=== PATIENT | male | born 1955 | race Caucasian/White ===

== ENCOUNTER 2022-01-26 13:42 | Inpatient (IN) | payer MEDICARE ==
[2022-01-26 14:13] LABS: #Basophils 0.1 10x3/uL (0.0-0.2); #Eosinphils 0.1 10x3/uL (0.0-0.5); #Monocytes 0.7 10x3/uL (0.0-1.1); %Basophils 0.8 % (0.0-2.0); %Eosinophils 1.4 % (0.0-6.0); %Lymphocytes 12.5 % (18.0-47.0); %Monocytes 7.7 % (0.0-10.0); %Neutrophils 77.4 % (40.0-75.0); Hemoglobin 15.2 g/dL (13.5-17.5); Mean Corpuscular HGB CONC 33.9 g/dL (32.0-36.0); Mean Corpuscular Hemoglobin 31.5 pg (27.0-33.0); Mean Corpuscular Volume 92.8 fl (81.2-95.1); Platelet Count 194 10x3/uL (150-450); Red Blood Cell (RBC) Count 4.83 10x6/uL (4.32-5.72); White Blood Cell (WBC) Count 9.1 10x3/uL (3.5-10.5)
[2022-01-26 14:34] LABS: ALT (SGPT) 19 U/L (8-55); AST (SGOT) 27 U/L (5-34); Albumin 4.2 g/dL (3.4-4.8); Alkaline Phosphatase 90 U/L (40-110); Anion Gap 14 mmol/L (10-20); BUN (Urea Nitrogen) 18 mg/dL (8.4-25.7); Bilirubin, Total 2.2 mg/dL (0.2-1.2); Calc. Creatinine Clearance 0 mL/min (70-130); Calcium 9.4 mg/dL (7.8-10.44); Carbon Dioxide 26 mmol/L (23-31); Chloride 103 mmol/L (98-107); Globulin 2.8 g/dL (2.4-3.5); Glucose 105 mg/dL (80-115); Lipase 33 U/L (8-78); Potassium 4.6 mmol/L (3.5-5.1); Sodium 138 mmol/L (136-145)
[2022-01-26] MEDS ORDERED: Aspirin Chewable 81 MG TAB ONE (14:59)
[2022-01-26] MEDS ORDERED: Ondansetron PF 4 MG/2 ML Vial IVP PRN (16:14)
[2022-01-26] MEDS ORDERED: Enoxaparin Sodium 40 MG/0.4 ML SYRINGE SC SCH ×2 (16:15→18:30)
[2022-01-26] MEDS ORDERED: Nitroglycerin 0.4 MG TAB (25 Tab Bottle) SL PRN (16:17)
[2022-01-26 18:10] LABS: Troponin I Less than 0.010 ng/mL (< 0.028)
[2022-01-26 19:56] VITALS: BMI 26.3
[2022-01-26] MEDS: Metoprolol Tartrate 25 MG TAB PO SCH (20:54)
[2022-01-26] MEDS: Acetaminophen 325 MG TAB PO PRN (20:55)
[2022-01-27 00:24] LABS: Troponin I Less than 0.010 ng/mL (< 0.028)
[2022-01-27 03:49] LABS: #Basophils 0.1 10x3/uL (0.0-0.2); #Eosinphils 0.2 10x3/uL (0.0-0.5); #Monocytes 0.6 10x3/uL (0.0-1.1); #Neutrophils 3.5 10x3/uL (1.5-8.4); %Basophils 1.2 % (0.0-2.0); %Eosinophils 2.8 % (0.0-6.0); %Lymphocytes 28.5 % (18.0-47.0); %Monocytes 9.7 % (0.0-10.0); %Neutrophils 57.6 % (40.0-75.0); Hemoglobin 14.8 g/dL (13.5-17.5); Mean Corpuscular HGB CONC 34.3 g/dL (32.0-36.0); Mean Corpuscular Hemoglobin 31.3 pg (27.0-33.0); Mean Corpuscular Volume 91.3 fl (81.2-95.1); Mean Platelet Volume 10.5 fl (7.4-10.4); Platelet Count 179 10x3/uL (150-450); RBC Distribution Width 13.1 % (11.5-14.5); Red Blood Cell (RBC) Count 4.73 10x6/uL (4.32-5.72); White Blood Cell (WBC) Count 6.1 10x3/uL (3.5-10.5)
[2022-01-27 03:56] LABS: ALT (SGPT) 18 U/L (8-55); AST (SGOT) 23 U/L (5-34); Albumin 3.6 g/dL (3.4-4.8); Alkaline Phosphatase 81 U/L (40-110); Anion Gap 15 mmol/L (10-20); BUN (Urea Nitrogen) 18 mg/dL (8.4-25.7); Bilirubin, Total 1.6 mg/dL (0.2-1.2); Calc. Creatinine Clearance 110 mL/min (70-130); Calcium 8.9 mg/dL (7.8-10.44); Carbon Dioxide 24 mmol/L (23-31); Chloride 107 mmol/L (98-107); Globulin 2.8 g/dL (2.4-3.5); Glucose 119 mg/dL (80-115); Potassium 3.5 mmol/L (3.5-5.1); Protein, Total 6.4 g/dL (5.8-8.1); Sodium 142 mmol/L (136-145)
[2022-01-27] MEDS: Levothyroxine Sodium 100 MCG TAB PO SCH (05:52)
[2022-01-27] MEDS ORDERED: Dutasteride 0.5 MG CAP PO SCH (07:30)
[2022-01-27] MEDS: Metoprolol Tartrate 25 MG TAB PO SCH ×2 (09:02→20:11)
[2022-01-27] MEDS: Isosorbide Dinitrate 10 MG TAB PO SCH (09:04)
[2022-01-27] MEDS: Aspirin 81 mg Enteric Coated Tablet PO SCH (09:04)
[2022-01-27] MEDS: Lisinopril 10 MG TAB PO SCH (09:04)
[2022-01-27] MEDS: Enoxaparin Sodium 40 MG/0.4 ML SYRINGE SC SCH (09:05)
[2022-01-27 22:39] LABS: SARS-CoV-2 PCR by NAA Not Detected (NotDetected)
[2022-01-28] MEDS: Acetaminophen 325 MG TAB PO PRN (04:20)
[2022-01-28] MEDS: Levothyroxine Sodium 100 MCG TAB PO SCH (05:21)
[2022-01-28] MEDS: Isosorbide Dinitrate 10 MG TAB PO SCH (08:13)
[2022-01-28] MEDS: Metoprolol Tartrate 25 MG TAB PO SCH ×2 (08:13→21:38)
[2022-01-28] MEDS: Lisinopril 10 MG TAB PO SCH (08:13)
[2022-01-28] MEDS: Enoxaparin Sodium 40 MG/0.4 ML SYRINGE SC SCH (08:13)
[2022-01-28] MEDS: Aspirin 81 mg Enteric Coated Tablet PO SCH (08:13)
[2022-01-29] MEDS: Metoprolol Tartrate 25 MG TAB PO SCH ×2 (06:05→21:57)
[2022-01-29] MEDS: Levothyroxine Sodium 100 MCG TAB PO SCH (06:05)
[2022-01-29] MEDS ORDERED: Iopamidol 300 61% 100 ML VIAL FS ONE (09:48)
[2022-01-29] MEDS: Lisinopril 20 MG TAB PO SCH (10:34)
[2022-01-29] MEDS: Isosorbide Dinitrate 10 MG TAB PO SCH (10:35)
[2022-01-29] MEDS: Aspirin 81 mg Enteric Coated Tablet PO SCH (10:44)
[2022-01-29] MEDS: Enoxaparin Sodium 40 MG/0.4 ML SYRINGE SC SCH (10:44)
[2022-01-29] MEDS ORDERED: PROPOFOL 20 ML ONE (15:33)
[2022-01-29] MEDS ORDERED: Lidocaine 1% PF 5 ML VIAL ONE (15:39)
[2022-01-30 03:58] LABS: #Basophils 0.1 10x3/uL (0.0-0.2); #Eosinphils 0.1 10x3/uL (0.0-0.5); #Monocytes 0.5 10x3/uL (0.0-1.1); #Neutrophils 4.2 10x3/uL (1.5-8.4); %Basophils 1.4 % (0.0-2.0); %Eosinophils 2.2 % (0.0-6.0); %Lymphocytes 23.1 % (18.0-47.0); %Monocytes 7.9 % (0.0-10.0); %Neutrophils 65.1 % (40.0-75.0); Hemoglobin 15.9 g/dL (13.5-17.5); Mean Corpuscular HGB CONC 34.4 g/dL (32.0-36.0); Mean Corpuscular Hemoglobin 31.4 pg (27.0-33.0); Mean Corpuscular Volume 91.3 fl (81.2-95.1); Platelet Count 186 10x3/uL (150-450); Red Blood Cell (RBC) Count 5.06 10x6/uL (4.32-5.72); White Blood Cell (WBC) Count 6.5 10x3/uL (3.5-10.5)
[2022-01-30 04:14] LABS: Anion Gap 13 mmol/L (10-20); BUN (Urea Nitrogen) 21 mg/dL (8.4-25.7); Calc. Creatinine Clearance 114 mL/min (70-130); Calcium 9.3 mg/dL (7.8-10.44); Carbon Dioxide 25 mmol/L (23-31); Chloride 108 mmol/L (98-107); Glucose 115 mg/dL (80-115); Potassium 3.7 mmol/L (3.5-5.1); Sodium 142 mmol/L (136-145)
[2022-01-30] MEDS: Levothyroxine Sodium 100 MCG TAB PO SCH (06:18)
[2022-01-30 06:29] LABS: Thyroid Stimulating Hormone 1.2305 uIU/mL (0.35-4.94)
[2022-01-30] MEDS: Lisinopril 20 MG TAB PO SCH (08:52)
[2022-01-30] MEDS: Metoprolol Tartrate 25 MG TAB PO SCH (08:52)
[2022-01-30] MEDS: Enoxaparin Sodium 40 MG/0.4 ML SYRINGE SC SCH (08:52)
[2022-01-30] MEDS: Isosorbide Dinitrate 10 MG TAB PO SCH (08:53)
[2022-01-30] MEDS: Aspirin 81 mg Enteric Coated Tablet PO SCH (08:53)
[2022-01-30 13:20] LABS: T4 8.4 ug/dL (4.87-11.72)
[2022-01-30 17:06] VITALS: BP 137/83; TEMP 97.4
== END 2022-01-30 17:06 | disposition home or self-care (01) | DRG 313 ==
LOC: CSHERS 13:42 → CSHTELE 18:05 → OBSVTOIN 01-29 09:01
PROVIDERS: ADMIT Hospitalist; ATTEND Hospitalist
PROC: 0DB98ZX Excision of Duodenum, Via Natural or Artificial Opening Endoscopic, Diagnostic (ICD-10-PCS; principal; 2022-01-29)
DX: R07.89 Other chest pain (principal); I25.10 Atherosclerotic heart disease of native coronary artery without angina pectoris; E78.5 Hyperlipidemia, unspecified; N40.0 Benign prostatic hyperplasia without lower urinary tract symptoms; Z20.822 Contact with and (suspected) exposure to COVID-19; I49.1 Atrial premature depolarization; I10 Essential (primary) hypertension; E03.9 Hypothyroidism, unspecified; Z95.5 Presence of coronary angioplasty implant and graft; Z88.5 Allergy status to narcotic agent; Z79.899 Other long term (current) drug therapy; Z90.49 Acquired absence of other specified parts of digestive tract; Z90.89 Acquired absence of other organs; Z98.890 Other specified postprocedural states
CPT/HCPCS: 36415; 71045; 74177; 80048; 80053; 83690; 84436; 84443; 84484; 85025; 85379; 88305; 93005; 93010; 93306; 96372; G0378; J1650; J2704; Q9967; U0003; U0005

== ENCOUNTER 2022-05-24 15:23 | Emergency (ER) | payer MEDICARE | END 2022-05-24 18:13 | disposition home or self-care (01) | LOC: CSHERS 15:23 | DX: R21 Rash and other nonspecific skin eruption (principal); I25.10 Atherosclerotic heart disease of native coronary artery without angina pectoris; I25.2 Old myocardial infarction; E78.5 Hyperlipidemia, unspecified; E03.9 Hypothyroidism, unspecified; I10 Essential (primary) hypertension; Z79.82 Long term (current) use of aspirin; Z79.899 Other long term (current) drug therapy ==

== ENCOUNTER → 2023-04-28 | Day surgery (SDC) | payer MEDICARE ==
[~2023-04-28] MED LIST: Atropine Sulfate 0.4 mg/1 ml Vial ONE; Glycopyrrolate 0.2 MG/ML 5 ML SYRINGE ONE; Midazolam HCl 2 mg/2 ml Vial ONE; PHENYLEPHRINE-NS 100 MCG/ML 10 ML SYRINGE ONE; PROPOFOL 60 ML ONE; ePHEDrine Sulfate 50 MG/10 ML VIAL ONE
== END ==
LOC: CSHSDC 10:20
PROVIDERS: ATTEND Internal Medicine Cardiovascular Disease
DX: I48.0 Paroxysmal atrial fibrillation (principal); I08.1 Rheumatic disorders of both mitral and tricuspid valves; I25.10 Atherosclerotic heart disease of native coronary artery without angina pectoris; R94.31 Abnormal electrocardiogram [ECG] [EKG]; I10 Essential (primary) hypertension; E78.5 Hyperlipidemia, unspecified; I25.2 Old myocardial infarction; Z79.890 Hormone replacement therapy; Z79.899 Other long term (current) drug therapy; Z90.89 Acquired absence of other organs; Z90.49 Acquired absence of other specified parts of digestive tract; Z95.5 Presence of coronary angioplasty implant and graft; Z88.6 Allergy status to analgesic agent
CPT/HCPCS: 93312; J0461; J2250; J2704

== ENCOUNTER 2023-11-20 18:51 | Observation (INO) | payer MEDICARE ==
[2023-11-20 19:46] LABS: #Basophils 0.1 10x3/uL (0.0-0.2); #Eosinphils 0.2 10x3/uL (0.0-0.5); #Monocytes 0.6 10x3/uL (0.0-1.1); #Neutrophils 10.4 10x3/uL (1.5-8.4); %Basophils 0.9 % (0.0-2.0); %Eosinophils 1.7 % (0.0-6.0); %Lymphocytes 10.3 % (18.0-47.0); %Neutrophils 81.7 % (40.0-75.0); Hematocrit 45.7 % (38.8-50.0); Hemoglobin 15.1 g/dL (13.5-17.5); Mean Corpuscular Hemoglobin 30.7 pg (27.0-33.0); Mean Corpuscular Volume 92.9 fl (81.2-95.1); Mean Platelet Volume 9.9 fl (7.4-10.4); Platelet Count 218 10x3/uL (150-450); RBC Distribution Width 13.3 % (11.5-14.5); Red Blood Cell (RBC) Count 4.92 10x6/uL (4.32-5.72); White Blood Cell (WBC) Count 12.7 10x3/uL (3.5-10.5)
[2023-11-20 19:55] LABS: ALT (SGPT) 18 U/L (8-55); AST (SGOT) 24 U/L (5-34); Albumin 4.3 g/dL (3.4-4.8); Alkaline Phosphatase 67 U/L (40-110); Anion Gap 11 mmol/L (10-20); BUN (Urea Nitrogen) 22 mg/dL (8.4-25.7); Bilirubin, Total 1.7 mg/dL (0.2-1.2); Calc. Creatinine Clearance 0 mL/min (70-130); Carbon Dioxide 28 mmol/L (23-31); Chloride 106 mmol/L (98-107); Estimated GFR 86; Glucose 129 mg/dL (80-115); Lipase 45 U/L (8-78); Potassium 4.3 mmol/L (3.5-5.1); Protein, Total 7.3 g/dL (5.8-8.1); Sodium 141 mmol/L (136-145)
[2023-11-20 19:58] LABS: Troponin I Less than 0.010 ng/mL (< 0.028)
[2023-11-20 20:32] LABS: Bilirubin Neg (Negative); Blood, Urine 10 (Negative); Clarity Clear (Clear); Glucose, Urine (Dipstick) Normal (Negative); Ketone, Urine Negative (Negative); Leukocyte Negative (Negative); Nitrite Negative (Negative); Protein, Urine (Dipstick) 30 mg/dl (Neg-Trace); Specific Gravity, Urine 1.015 (1.005-1.030)
[2023-11-20 20:41] LABS: CAUTI Indications for Culture Fever or rigors; RBC/HPF 0-3 HPF (0-3); Squamous Epithelial 0-3 HPF (0-3); WBC/HPF 0-3 HPF (0-3)
[2023-11-20 20:42] LABS: Bacteria/HPF 2+ HPF (None Seen); Mucous/LPF 1+ LPF (<2+); Urine Culture Reflex No No
[2023-11-20] MEDS ORDERED: Guaifenesin DM 100-10/5 ML UDCUP PO PRN (21:00)
[2023-11-20] MEDS ORDERED: Senokot S 8.6-50 MG TAB PO PRN (21:00)
[2023-11-20] MEDS ORDERED: Calcium Carbonate 500 MG ChewTAB PO PRN (21:00)
[2023-11-20] MEDS ORDERED: Acetaminophen 325 MG TAB PO PRN (21:00)
[2023-11-20] MEDS ORDERED: Ondansetron PF 4 MG/2 ML Vial IVP PRN (21:00)
[2023-11-20] MEDS ORDERED: Aspirin Chewable 81 MG TAB ONE (21:51)
[2023-11-20 23:19] LABS: Troponin I Less than 0.010 ng/mL (< 0.028)
[2023-11-20 23:34] VITALS: BMI 25.4
[2023-11-21] MEDS: Lactated Ringer's 500 ML IV SCH ×2 (00:07)
[2023-11-21] MEDS: Magnesium Sulfate/D5W 1 GM/100 ML BAG IVPB SCH (00:07)
[2023-11-21 05:04] LABS: Anion Gap 12 mmol/L (10-20); BUN (Urea Nitrogen) 15 mg/dL (8.4-25.7); Calc. Creatinine Clearance 114 mL/min (70-130); Calcium 8.5 mg/dL (7.8-10.44); Carbon Dioxide 23 mmol/L (23-31); Chloride 108 mmol/L (98-107); Estimated GFR 97; Glucose 98 mg/dL (80-115); Potassium 3.5 mmol/L (3.5-5.1); Sodium 139 mmol/L (136-145)
[2023-11-21 05:13] LABS: Troponin I Less than 0.010 ng/mL (< 0.028)
[2023-11-21] MEDS: Levothyroxine Sodium 100 MCG TAB PO SCH (07:03)
[2023-11-21] MEDS: Potassium Chloride 20 MEQ TAB PO SCH (07:03)
[2023-11-21] MEDS: Multivit, Therapeutic 1 TAB PO SCH (08:26)
[2023-11-21] MEDS: Ezetimibe 10 MG TAB PO SCH (08:27)
[2023-11-21] MEDS: Calcium Carbonate 600 MG + Vit D TAB PO SCH (08:27)
[2023-11-21] MEDS: Dronedarone HCl 400 MG TAB PO SCH (08:27)
[2023-11-21] MEDS: Metoprolol Tartrate 25 MG TAB PO SCH (08:27)
[2023-11-21] MEDS: Aspirin 81 mg Enteric Coated Tablet PO SCH (08:27)
[2023-11-21] MEDS: Icosapent Ethyl 1 GM CAPSULE PO SCH (08:56)
[2023-11-21] MEDS ORDERED: Metoprolol Tartrate 25 MG TAB PO SCH (09:00)
[2023-11-21] MEDS: Enoxaparin 40 MG (0.4 mL) SYRINGE SC SCH (20:49)
[2023-11-21] MEDS: Atorvastatin Calcium 40 MG TAB PO SCH (20:49)
[2023-11-22 13:16] VITALS: BP 134/75; TEMP 97.6
== END 2023-11-22 14:27 | disposition home or self-care (01) ==
LOC: CSHERS 18:51 → CSHTELE 21:06
PROVIDERS: ADMIT Student in an Organized Health Care Education/Training Program; ATTEND Hospitalist
PROC: B246ZZZ Ultrasonography of Right and Left Heart (ICD-10-PCS; principal; 2023-11-22)
DX: R42 Dizziness and giddiness (principal); R55 Syncope and collapse; I07.1 Rheumatic tricuspid insufficiency; I48.0 Paroxysmal atrial fibrillation; I10 Essential (primary) hypertension; E78.5 Hyperlipidemia, unspecified; R07.2 Precordial pain; E03.9 Hypothyroidism, unspecified; I49.3 Ventricular premature depolarization; N19 Unspecified kidney failure; I25.10 Atherosclerotic heart disease of native coronary artery without angina pectoris; Z95.5 Presence of coronary angioplasty implant and graft; Z95.1 Presence of aortocoronary bypass graft; Z90.49 Acquired absence of other specified parts of digestive tract; Z88.5 Allergy status to narcotic agent; Z79.890 Hormone replacement therapy; Z79.82 Long term (current) use of aspirin; Z79.899 Other long term (current) drug therapy; Z90.89 Acquired absence of other organs
CPT/HCPCS: 71045; 80048; 80053; 81001; 83690; 83735 ×2; 84443; 84484 ×3; 85025; 93005 ×2; 93306; 96374; 99285; G0378 ×4; J3475; 36415; 93010; J1650; J7120

== ENCOUNTER 2025-06-16 04:01 | Emergency (ER) | payer MEDICARE ==
[2025-06-16] MEDS ORDERED: Droperidol 5 MG/2 ML VIAL ONE (04:30)
[2025-06-16 04:42] LABS: #Basophils 0.05 10x3/uL (0.0-0.2); #Eosinophils 0.03 10x3/uL (0.0-0.5); #Monocytes 0.95 10x3/uL (0.0-1.1); #Neutrophils 9.12 10x3/uL (1.5-8.4); %Basophils 0.5 % (0.0-2.0); %Eosinophils 0.3 % (0.0-6.0); %Lymphocytes 8.0 % (18.0-47.0); %Monocytes 8.6 % (0.0-10.0); %Neutrophils 82.3 % (40.0-75.0); Hematocrit 44.7 % (38.8-50.0); Hemoglobin 14.8 g/dL (13.5-17.5); Mean Corpuscular Hemoglobin 31.3 pg (27.0-33.0); Mean Corpuscular Volume 94.5 fL (81.2-95.1); Platelet Count 254 10x3/uL (150-450); Red Blood Cell (RBC) Count 4.73 10x6/uL (4.32-5.72); White Blood Cell (WBC) Count 11.07 10x3/uL (3.5-10.5)
[2025-06-16 04:44] LABS: ALT (SGPT) 12 U/L (Less than 45); AST (SGOT) 21 U/L (11-34); Albumin 3.8 g/dL (3.1-4.5); Alkaline Phosphatase 61 U/L (40-110); Anion Gap 17 mmol/L (10-20); BUN (Urea Nitrogen) 20 mg/dL (8.4-25.7); Bilirubin, Total 1.5 mg/dL (0.3-1.2); Calc. Creatinine Clearance 0 mL/min (70-130); Calcium 8.9 mg/dL (7.8-10.44); Carbon Dioxide 25 mmol/L (23-31); Chloride 102 mmol/L (98-107); Globulin 3.8 g/dL (2.4-3.5); Glucose 136 mg/dL (80-115); Lipase 26 U/L (8-78); Potassium 4.2 mmol/L (3.5-5.1); Sodium 140 mmol/L (136-145)
[2025-06-16 04:49] LABS: Troponin I Less than 0.010 ng/mL (< 0.028)
[2025-06-16 05:28] LABS: Glucose, Urine (Dipstick) Negative (Negative); Leukocyte Negative (Negative); Protein, Urine (Dipstick) Negative (Neg-Trace); Specific Gravity, Urine 1.015 (1.005-1.030)
[2025-06-16 05:39] LABS: Bacteria/HPF None Seen HPF (None Seen); CAUTI Indications for Culture Pelvic or flank pain; RBC/HPF 0-3 HPF (0-3); WBC/HPF 0-3 HPF (0-3)
[2025-06-16 05:40] LABS: Urine Culture Reflex No No
[2025-06-16] MEDS ORDERED: Iopamidol 300 61% 100 ML VIAL FS ONE (13:35)
== END 2025-06-16 07:42 | disposition home or self-care (01) ==
LOC: CSHERS 04:01
DX: N13.30 Unspecified hydronephrosis (principal); R10.10 Upper abdominal pain, unspecified; K59.00 Constipation, unspecified; R11.2 Nausea with vomiting, unspecified; I25.10 Atherosclerotic heart disease of native coronary artery without angina pectoris; I25.2 Old myocardial infarction; I10 Essential (primary) hypertension; E03.9 Hypothyroidism, unspecified; E78.5 Hyperlipidemia, unspecified; Z79.899 Other long term (current) drug therapy; Z79.890 Hormone replacement therapy; Z79.82 Long term (current) use of aspirin
CPT/HCPCS: 74177; 80053; 81001; 83605; 83690; 84484; 85025; 93005; 96374; 99284; J1790; Q9967